=== PATIENT | female | born 1975 | race Two or more races ===

== ENCOUNTER 2017-11-27 16:21 | Emergency (ER) | payer OTHER ==
[~2017-11-27] VITALS: Ht 165.1 cm; Wt 72.6 kg
[2017-11-27 16:49] VITALS: BP 106/77
[2017-11-27] MEDS ORDERED: KETOROLAC TROMETH 60MG/2ML VIAL IM ONE (17:15)
[2017-11-27] MEDS ORDERED: METHOCARBAMOL 500 MG TAB PO ONE (17:15)
== END 2017-11-27 17:50 | disposition home or self-care (01) ==
LOC: ER 16:21
DX: M54.5 Low back pain (principal); M54.2 Cervicalgia; R51 Headache; Z90.710 Acquired absence of both cervix and uterus; V43.52XA Car driver injured in collision with other type car in traffic accident, initial encounter; Y93.89 Activity, other specified; Y99.8 Other external cause status; Y92.410 Unspecified street and highway as the place of occurrence of the external cause
CPT/HCPCS: 72100

== ENCOUNTER 2022-03-31 21:49 | Emergency (ER) | payer MEDICAID, OTHER ==
[~2022-03-31] VITALS: Ht 165.1 cm; Wt 64.5 kg
[2022-04-01] MEDS ORDERED: TETANUS-DIPTH-ACEL PERTUSSIS 0.5ML SYR Tdap IM ONE (02:15)
[2022-04-01] MEDS ORDERED: LIDOCAINE 1% HCL (LOCAL ANESTH.) INJ 20ML MDV IJ ONE (02:15)
[2022-04-01 02:38] VITALS: BP 120/80
[2022-04-01] MEDS ORDERED: AMOX-277 PO (02:39)
== END 2022-04-01 03:20 | disposition home or self-care (01) ==
LOC: ER 21:49
DX: S81.811A Laceration without foreign body, right lower leg, initial encounter (principal); S81.851A Open bite, right lower leg, initial encounter; Z90.710 Acquired absence of both cervix and uterus; Z79.2 Long term (current) use of antibiotics; W54.0XXA Bitten by dog, initial encounter; Y93.89 Activity, other specified; Y92.89 Other specified places as the place of occurrence of the external cause; Y99.8 Other external cause status
CPT/HCPCS: 12001; 90471; 90715; 99283; J2001